=== PATIENT | male | born 1960 | race Caucasian/White ===

== ENCOUNTER 2022-12-24 05:38 | Outpatient (CLI) | payer MEDICARE ==
[~2022-12-24] VITALS: Ht 180.3 cm; Wt 83.0 kg
[2022-12-24] MEDS ORDERED: LEVE500T6 PO (10:06)
== END 2022-12-24 10:19 | disposition home or self-care (01) ==
LOC: PREOP 05:38
PROVIDERS: ATTEND Surgery
DX: Z01.818 Encounter for other preprocedural examination (principal)

== ENCOUNTER 2023-01-01 14:02 | Day surgery (SDC) | payer MEDICARE ==
[~2023-01-01] VITALS: Ht 180.3 cm; Wt 83.0 kg
[~2023-01-01 14:02] MED LIST: LEVE500T6 PO
[2023-01-01] MEDS ORDERED: LACTATED RINGERS 1,000 ML 1,000 ML IV STA (14:08)
[2023-01-01] MEDS ORDERED: HURRICAINE EXT TUBE (BENZOCAINE) XX PRN (14:15)
[2023-01-01 14:26] VITALS: BP 119/88
[2023-01-01 15:03] LABS: AMPHETAMINE SCREEN, URINE NEGATIVE (NEGATIVE); BARBITURATE SCREEN URINE NEGATIVE (NEGATIVE); CANNABINOID SCREEN, URINE NEGATIVE (NEGATIVE); COCAINE SCREEN URINE NEGATIVE (NEGATIVE); OPIATE SCREEN URINE NEGATIVE (NEGATIVE)
[2023-01-01 15:04] LABS: METHADONE STAT NEGATIVE (NEGATIVE); OXYCODONE STAT NEGATIVE (NEGATIVE); PROPOXYPHENE STAT NEGATIVE (NEGATIVE); TRICYCLIC ANTIDEPRESSANTS SCRE NEGATIVE (NEGATIVE)
--- NOTE | 2023-01-01 15:31 | Progress Note-Pre Operative ---
Pre-Operative Progress Note Date H&P Reviewed: Jan 01, 2023 Time H&P Reviewed: 15:30 History & Physical: H&P Reviewed, Patient Examed, No changes noted Pre-Operative Diagnosis: gerd, screening colonoscopy TIARA LEUNG DO Jan 01, 2023 15:30
[2023-01-01] MEDS ORDERED: MIDAZOLAM INJ 2 MG/2 ML VIAL ONE (15:53)
[2023-01-01 16:30] VITALS: BP 82/52
--- NOTE | 2023-01-01 16:32 | Progress Note-Post Operative ---
Post-Operative Progess Note Surgeon (s)/Vision Mixer (s) Surgeon TIARA LEUNG DO Vision Mixer: NA Pre-Operative Diagnosis gerd, screening colonoscopy Post-Operative Diagnosis reflux esophagitis, diverticulosis, colon polyps, rectal inflammation Procedure & Operative Findings Date of Procedure 01/01/23 Procedure Performed/Findings EGD with biopsies, colonoscopy with hot biopsy polypectomy x2, rectum cold biopsy Anesthesia Type Per PHARMACEUTICAL SALES REPRESENTATIVE Estimated Blood Loss Estimated blood loss (mL): none Specimens/Packing Specimens Removed GE junction, ascending, transverse, and rectum TIARA LEUNG DO Jan 01, 2023 16:32
--- NOTE | 2023-01-01 16:34 | Discharge Inst-Simple/Standard ---
Discharge Inst-Standard Patient Instructions/Follow Up Plan of Care/Instructions/FU: 2 weeks jean-pierre Activity as Tolerated: Yes Discharge Diet: Regular Diet (high fiber) TIARA LEUNG DO Jan 01, 2023 16:34
[2023-01-01 16:35] VITALS: BP 116/72
[2023-01-01 16:40] VITALS: BP 116/72
[2023-01-01 17:10] VITALS: BP 118/74
--- NOTE | 2023-01-01 17:13 | Anesthesia-General Post-Op ---
MAC Patient Condition Mental Status/LOC: Same as Preop Cardiovascular: Satisfactory Nausea/Vomiting: Absent Respiratory: Satisfactory Pain: Controlled Complications: Absent Post Op Complications Complications None Follow Up Care/Instructions Patient Instructions None needed. Anesthesiology Discharge Order Discharge Order Patient is doing well, no complaints, stable vital signs, no apparent adverse anesthesia problems. No complications reported per nursing. NINA SINCLAIR CRNA Jan 01, 2023 17:13
--- NOTE | 2023-01-01 21:47 | OPERATIVE REPORT ---
DATE OF SERVICE: 01/01/2023 PREOPERATIVE DIAGNOSES: Gastroesophageal reflux disease, screening colonoscopy. POSTOPERATIVE DIAGNOSES: For reflux esophagitis, diverticulosis, colon polyps, rectal inflammation. SURGEON: Tiara Seth DO ANESTHESIA: Per CREATIVE WRITING PROFESSOR. ESTIMATED BLOOD LOSS: None. PROCEDURES: EGD with biopsies, colonoscopy with hot biopsy, polypectomy x2 and cold biopsy of the rectum, INDICATIONS: The patient is a 62-year-old male with GERD and needing screening colonoscopy. He understands risks and benefits of procedure and wished to proceed. Consent was signed in chart. DESCRIPTION OF PROCEDURE: The patient was taken to endoscopy suite, placed in left lateral recumbent position. Timeout was performed. Scope was inserted in the mouth, down the esophagus, stomach, into the duodenum without difficulty. No polyps, masses or ulcerations within the duodenum. Scope was slowly retracted into the stomach where it was further insufflated. No polyps, masses or ulcerations. Biopsy of the antrum was obtained. Scope was retroflexed noting no other pathology. Scope was returned to its normal position, slowly withdrawn until distal esophagus. Slight changes of reflux esophagitis present. Biopsy of GE junction was obtained. Scope was slowly retracted back after a biopsy was obtained, noting no other pathology. Digital rectal exam was performed. No palpable polyps, masses or ulcerations. Scope was inserted in the rectum, advanced all the way to the cecum with minimal difficulty. Prep was adequate. Scope was slowly retracted back. No polyps, masses or ulcerations in the cecum. In the ascending colon, small polyp was present, which hot biopsy polypectomy was performed. Scope was then continuously retracted back. Another polyp was in transverse colon, which hot biopsy polypectomy was performed. Scope was then continuously retracted back. No polyps, masses or ulcerations within the remainder of the transverse and descending colon. In the sigmoid colon, some diverticulosis was present. No polyps, masses or ulcerations. Once in the rectum, noted some slight rectal inflammation, likely secondary to prep, obtained a cold biopsy. Scope was retroflexed, noting no other pathology. Scope was returned to its normal position, slowly withdrawn until completely removed. The patient tolerated the procedure well without complications, taken to recovery room in stable condition. RECOMMENDATIONS: The rectal inflammation is likely secondary to the prep. We will await biopsy results. The patient with diverticulosis, we would recommend high fiber diet. The patient with colon polyps, we will follow up in 2 weeks to discuss pathology results. We will recommend repeat colonoscopy in 5 years. Await biopsy results for the upper endoscopy. Continue current management. Job ID: [id number] DocumentID: [id number] Dictated Date: 01/01/2023 16:32:09 Edger Saw Operator Date: 01/01/2023 21:45:00 Dictated By: TIARA SETH DO
== END 2023-01-01 17:10 | disposition home or self-care (01) ==
LOC: ENDO 14:02
PROVIDERS: ATTEND Surgery
DX: Z12.11 Encounter for screening for malignant neoplasm of colon (principal); D12.2 Benign neoplasm of ascending colon; D12.3 Benign neoplasm of transverse colon; K21.00 Gastro-esophageal reflux disease with esophagitis, without bleeding; K57.30 Diverticulosis of large intestine without perforation or abscess without bleeding; K62.89 Other specified diseases of anus and rectum; K31.89 Other diseases of stomach and duodenum; B19.20 Unspecified viral hepatitis C without hepatic coma; F17.220 Nicotine dependence, chewing tobacco, uncomplicated; Z85.028 Personal history of other malignant neoplasm of stomach; Z85.818 Personal history of malignant neoplasm of other sites of lip, oral cavity, and pharynx
CPT/HCPCS: 80306

== ENCOUNTER 2023-02-15 19:56 | Observation (INO) | payer MEDICARE, OTHER ==
[~2023-02-15] VITALS: Ht 175 cm; Wt 97.4 kg
[~2023-02-15 19:56] MED LIST changes: +ACHD5005 PO; +AZIT500T9 PO; +GUAI120013 PO; +PROC5TAB52 PO
--- NOTE | 2023-02-15 20:15 | ED GI ---
General Chief Complaint: Abdominal/GI Problems Stated Complaint: HEP C|BLOOD IN STOOL Nursing Triage Note: PATIENT STATES ONE EPISODE OF BLOODY STOOLS. STATES CONSTIPATED, LAST BM 4 DAYS AGO. Source of Information: Patient, Family Exam Limitations: No Limitations History of Present Illness Date Seen by Provider: Feb 15, 2023 Time Seen by Provider: 19:59 Initial Comments 62-year-old male with past medical history of hepatitis C that is actively being treated as well as a seizure disorder coming in due to bright red blood per rectum. He typically is fairly constipated. His last bowel movement was roughly a week ago. He had a bowel movement today, and there was blood that was bright red mixed in with his normal stool. This only occurred 1 time today. This is never occurred in the past. Denies any prior history of GI bleed. Does not take any NSAIDs or blood thinners. Has had almost chronic abdominal pain which he attributes to a hernia. Otherwise denying any other acute complaints. Allergies and Home Medications Allergies Coded Allergies: No Known Allergies (Unverified Allergy, Unknown, 12/24/22) Patient Home Medication List Home Medication List Reviewed: Yes Azithromycin (Azithromycin) 500 Mg Tablet, 500 MG PO DAILY Prescribed by: ALLISON RIGGINS on 01/10/231717 Guaifenesin (Mucinex) 1,200 Mg Tab.er.12h, 1,200 MG PO BID Prescribed by: ALLISON RIGGINS on 01/10/231717 Hydrocodone/Acetaminophen (Hydrocodone-Acetamin 5-325 mg) 5 Mg-325 Mg Tablet, 1 TAB PO Q4H PRN for PAIN SEVERE Prescribed by: ALLISON RIGGINS on 01/10/231717 Levetiracetam (Levetiracetam) 500 Mg Tablet, 500 MG PO BID, (Reported) Entered as Reported by: KRISTIAN CLAUDIO on 12/24/22 1006 Prochlorperazine Maleate (Compazine) 5 Mg Tablet, 5 MG PO Q6H PRN for NAUSEA/VOMITING Prescribed by: ALLISON RIGGINS on 01/10/231717 Review of Systems Review of Systems Constitutional: No fever EENTM: No Symptoms Reported Respiratory: No Symptoms Reported Cardiovascular: No Symptoms Reported Gastrointestinal: See HPI Genitourinary: No Symptoms Reported Musculoskeletal: no symptoms reported Skin: no symptoms reported Psychiatric/Neurological: No Symptoms Reported Endocrine: No Symptoms Reported Hematologic/Lymphatic: No Symptoms Reported All Other Systems Reviewed Negative Unless Noted: Yes Past Awsczwp-Iancwb-Jcbizt Hx Past Medical History Surgery/Hospitalization HX: HEP C Surgeries: Yes (ANKLE,SHOULDER) Orthopedic Respiratory: No Cardiac: Yes (PACEMAKER) Hypertension Neurological: Yes Concussion, Seizure Disorder Genitourinary: No Gastrointestinal: Yes (HEPATITIS A AND C) Hepatitis Musculoskeletal: No Endocrine: No Cancer: No Psychosocial: Yes (SCHIZO-AFFECTIVE DISORDER) Blood Disorders: No Physical Exam Vital Signs Vital Signs - First Documented 02/15/23 20:03 Temp 36.7 Pulse 84 Resp 20 B/P (MAP) 125/75 (92) Pulse Ox 100 O2 Delivery Room Air Capillary Refill : Less Than 3 Seconds Height/Weight/BMI Height: '" Weight: lbs. oz. kg; 24.00 BMI Method: General Appearance: WD/WN, no apparent distress HEENT: PERRL/EOMI, normal ENT inspection, pharynx normal Neck: non-tender, full range of motion, supple, normal inspection Respiratory: chest non-tender, lungs clear, normal breath sounds, no respiratory distress, no accessory muscle use Cardiovascular: regular rate, rhythm, no edema Gastrointestinal: normal bowel sounds, soft; No distended, No guarding, No rebound; tenderness (globally) Genital/Rectal: other (Brown stool with bright red blood dried around rectum, what feels like an internal hemorrhoid as well) Extremities: normal range of motion, non-tender, normal inspection, no pedal edema, no calf tenderness, normal capillary refill Back: normal inspection, no CVA tenderness Neurologic/Psychiatric: no motor/sensory deficits, alert, normal mood/affect Skin: normal color, warm/dry Progress/Results/Core Measures Results/Orders Lab Results Laboratory Tests Test 02/15/23 20:20 Range/Units White Blood Count 7.9 4.3-11.0 10^3/uL Red Blood Count 3.58 L 4.30-5.52 10^6/uL Hemoglobin 9.1 L 13.3-17.7 g/dL Hematocrit 29 L 40-54 % Mean Corpuscular Volume 80 80-99 fL Mean Corpuscular Hemoglobin 25 25-34 pg Mean Corpuscular Hemoglobin Concent 32 32-36 g/dL Red Cell Distribution Width 16.0 H 10.0-14.5 % Platelet Count 80 L 130-400 10^3/uL Mean Platelet Volume 10.2 9.0-12.2 fL Immature Granulocyte % (Auto) 1 % Neutrophils (%) (Auto) 83 H 42-75 % Lymphocytes (%) (Auto) 7 L 12-44 % Monocytes (%) (Auto) 9 0-12 % Eosinophils (%) (Auto) 0 0-10 % Basophils (%) (Auto) 0 0-10 % Neutrophils # (Auto) 6.6 1.8-7.8 10^3/uL Lymphocytes # (Auto) 0.5 L 1.0-4.0 10^3/uL Monocytes # (Auto) 0.7 0.0-1.0 10^3/uL Eosinophils # (Auto) 0.0 0.0-0.3 10^3/uL Basophils # (Auto) 0.0 0.0-0.1 10^3/uL Immature Granulocyte # (Auto) 0.1 0.0-0.1 10^3/uL Neutrophils % (Manual) 80 % Lymphocytes % (Manual) 1 % Monocytes % (Manual) 4 % Band Neutrophils 12 % Atypical Lymphocytes 2 % Reactive Lymphocytes 1 % Toxic Granulation 2+ Platelet Estimate DECREASED Anisocytosis MODERATE Blood Morphology Comment NORMAL Prothrombin Time 15.2 H 12.2-14.7 SEC INR Comment 1.2 0.8-1.4 Activated Partial Thromboplast Time 37 H 24-35 SEC Sodium Level 124 *L 135-145 MMOL/L Potassium Level 4.8 3.6-5.0 MMOL/L Chloride Level 95 L 98-107 MMOL/L Carbon Dioxide Level 20 L 21-32 MMOL/L Anion Gap 9 5-14 MMOL/L Blood Urea Nitrogen 31 H 7-18 MG/DL Creatinine 2.25 H 0.60-1.30 MG/DL Estimat Glomerular Filtration Rate 32 BUN/Creatinine Ratio 14 Glucose Level 114 H 70-105 MG/DL Calcium Level 8.3 L 8.5-10.1 MG/DL Corrected Calcium 9.3 8.5-10.1 MG/DL Magnesium Level 1.8 1.6-2.4 MG/DL Total Bilirubin 1.4 H 0.1-1.0 MG/DL Aspartate Amino Transf (AST/SGOT) 164 H 5-34 U/L Alanine Aminotransferase (ALT/SGPT) 94 H 0-55 U/L Alkaline Phosphatase 125 40-136 U/L C-Reactive Protein 7.29 H <0.50 MG/DL Total Protein 7.1 6.4-8.2 GM/DL Albumin 2.7 L 3.2-4.5 GM/DL Lipase 35 8-78 U/L Serum Alcohol < 10 <10 MG/DL My Orders Orders - DARNELL ASHFORD MD Alcohol (02/15/23 20:11) Cbc And Automated Diff (02/15/23 20:11) Comprehensive Metabolic Panel (02/15/23 20:11) Lipase (02/15/23 20:11) Magnesium (02/15/23 20:11) Protime With Inr (02/15/23 20:11) Partial Thromboplastin Time (02/15/23 20:11) Crp Fs (02/15/23 20:11) Ct Abdomen/Pelvis W (02/15/23 20:11) Ed Iv/Invasive Line Start (02/15/23 20:11) Lorazepam Injection (Lorazepam Injection (02/15/23 20:22) Pantoprazole Injection (Pantoprazole Inj (02/15/23 20:30) Iohexol Injection (Omnipaque 350 Mg/Ml 1 (02/15/23 20:30) Received Contrast (Hold Metformin- Contr (02/15/23 20:30) Ns (Ivpb) 100 Ml (Sodium Chloride 0.9% 1 (02/15/23 20:30) Manual Differential (02/15/23 20:20) Ekg Tracing (02/15/23 20:55) Ns Iv 1000 Ml (Ns Iv 1000 Ml) (02/15/23 20:59) Ns Iv 1000 Ml (Ns Iv 1000 Ml) (02/15/23 21:01) Ed Admission (Communication) (02/15/23 21:18) Ceftriaxone 1gm/50ml (1xdose) (02/15/23 21:30) Medications Given in ED Current Medications Medications Dose Ordered Sig/Hiwot Route Start Time Stop Time Status Last Admin Dose Admin Iohexol 100 ml ONCE ONCE IV 02/15/23 20:30 02/15/23 20:31 DC 02/15/23 20:37 80 ML Pantoprazole 40 mg ONCE ONCE IV 02/15/23 20:30 02/15/23 20:31 DC 02/15/23 20:27 40 MG Sodium Chloride 100 ml ONCE ONCE IV 02/15/23 20:30 02/15/23 20:31 DC 02/15/23 20:37 100 ML Vital Signs/I&O 02/15/23 20:03 Temp 36.7 Pulse 84 Resp 20 B/P (MAP) 125/75 (92) Pulse Ox 100 O2 Delivery Room Air Blood Pressure Mean: 92 Progress Progress Note : Progress Note 62-year-old male with above history coming in due to bright blood per rectum. ABCs were intact and vitals were stable on presentation. Physical exam with the primary blood dried around his anus, brown stool, and what feels like an internal hemorrhoid. He also has a good story for constipation. I reviewed the chart, and he had an upper and lower GI scope done within the past month. He does not have varices, he did have a polypectomy done on colonoscopy as well. He does not take any blood thinners, does take meloxicam, and has never had a GI bleed before. I personally placed an ultrasound-guided IV, and basic labs were obtained. They were significant for hemoglobin of 9.1, 3 points lower than last month, creatinine 2.2, significantly increased from last month, sodium 124, significantly lower from last month as well, and elevated CRP which is more nonspecific. CT abdomen pelvis ordered and interpreted by me showing what appears to be splenic infarcts and a small pleural effusion most notably. I contacted Dr. Seth, the surgeon on-call who also did his recent scope, and he believes given the patient's constipation is a very likely hemorrhoid did form. He will follow the patient along in consultation. I then contacted Dr. Galeano who admit the patient to the ICU for further evaluation and management under observation status. In discussion with her, the patient does have increasing bands in his white blood cell count, and given the GI bleed with a history of hepatitis C, we will go ahead and treat him with ceftriaxone as well. Initial ECG Impression Date: Feb 15, 2023 Initial ECG Impression Time: 20:59 Initial ECG Rate: 84 Initial ECG Rhythm: Normal Sinus Comment Narrow QRS, normal axis, no significant ST changes or T wave abnormalities Diagnostic Imaging Diagonstic Imaging: CT (abd/pelvis) Departure Impression Primary Impression: GI bleed Qualified Codes: K62.5 - Hemorrhage of anus and rectum Additional Impressions: NIURKA (acute kidney injury) Hyponatremia Splenic infarct Disposition: 30 STILL A PATIENT Condition: Stable Admissions Decision to Admit Reason: Admit from ER (General) Decision to Admit/Date: Feb 15, 2023 Time/Decision to Admit Time: 21:10 Departure-Patient Inst. Referrals: SEUN MATTHEWS (PCP/Family) Primary Care Physician DARNELL ASHFORD MD Feb 15, 2023 20:15
[2023-02-15 20:29] LABS: BASOPHILS % (AUTO) 0 % (0-10); EOSINOPHILS % (AUTO) 0 % (0-10); HEMATOCRIT 29 % (40-54); HEMOGLOBIN 9.1 g/dL (13.3-17.7); LYMPHOCYTES # (AUTO) 0.5 10^3/uL (1.0-4.0); LYMPHOCYTES % (AUTO) 7 % (12-44); MEAN CORPUSCULAR HEMOGLOBIN 25 pg (25-34); MEAN CORPUSCULAR HGB CONC 32 g/dL (32-36); MEAN CORPUSCULAR VOLUME 80 fL (80-99); MEAN PLATELET VOLUME 10.2 fL (9.0-12.2); MONOCYTES # (AUTO) 0.7 10^3/uL (0.0-1.0); MONOCYTES % (AUTO) 9 % (0-12); NEUTROPHILS # (AUTO) 6.6 10^3/uL (1.8-7.8); NEUTROPHILS % (AUTO) 83 % (42-75); PLATELET COUNT 80 10^3/uL (130-400); WHITE BLOOD COUNT 7.9 10^3/uL (4.3-11.0)
[2023-02-15] MEDS ORDERED: NS 100 ML (IVPB) BAG IV ONE (20:30)
[2023-02-15] MEDS ORDERED: IOHEXOL 350 MG/ML 100 ML (OMNIPAQUE 350) VIAL IV ONE (20:30)
[2023-02-15] MEDS ORDERED: PANTOPRAZOLE INJECTION 40 MG VIAL IV ONE (20:30)
[2023-02-15] MEDS ORDERED: HOLD METFORMIN - RECEIVED CONTRAST 20 ML VIAL IV SCH (20:30)
[2023-02-15 20:49] LABS: ATYPICAL LYMPHOCYTES 2 %; BAND NEUTROPHILS 12 %; LYMPHOCYTES % (MANUAL) 1 %; MONOCYTES % (MANUAL) 4 %; NEUTROPHILS % (MANUAL) 80 %; REACTIVE LYMPHOCYTES 1 %
[2023-02-15 20:50] LABS: ANISOCYTOSIS MODERATE; PLATELET ESTIMATE DECREASED; RBC MORPH NORMAL; TOXIC GRANULATION/VACUOLAZATIO 2+
[2023-02-15 20:54] LABS: ALKALINE PHOSPHATASE 125 U/L (40-136); BILIRUBIN,TOTAL 1.4 MG/DL (0.1-1.0); BUN/CREATININE RATIO 14; CALCIUM 8.3 MG/DL (8.5-10.1); CARBON DIOXIDE 20 MMOL/L (21-32); CHLORIDE 95 MMOL/L (98-107); CREATININE SERUM 2.25 MG/DL (0.60-1.30); GFR ESTIMATED 32; GLUCOSE 114 MG/DL (70-105); MAGNESIUM 1.8 MG/DL (1.6-2.4); POTASSIUM 4.8 MMOL/L (3.6-5.0); SODIUM 124 MMOL/L (135-145)
[2023-02-15 20:55] LABS: ALANINE AMINOTRANSFERASE 94 U/L (0-55); ALBUMIN 2.7 GM/DL (3.2-4.5); LIPASE 35 U/L (8-78); TOTAL PROTEIN 7.1 GM/DL (6.4-8.2)
[2023-02-15 20:57] LABS: INR 1.2 (0.8-1.4); PROTHROMBIN TIME PATIENT 15.2 SEC (12.2-14.7)
[2023-02-15] MEDS ORDERED: NS IV 1000 ML 1,000 ML IV STA (20:59)
[2023-02-15] MEDS ORDERED: NS IV 1000 ML 1,000 ML ONE (21:01)
--- NOTE | 2023-02-15 21:15 | Diagnostic Imaging Report ---
PROCEDURE: CT abdomen and pelvis with contrast. TECHNIQUE: Multiple contiguous axial images were obtained through the abdomen and pelvis after administration of intravenous contrast. Auto Exposure Controls were utilized during the CT exam to meet ALARA standards for radiation dose reduction. All CT scans use one or more of the following dose optimizing techniques: automated exposure control, MA and/or KvP adjustment based on patient size and exam type or iterative reconstruction. INDICATION: Periumbilical pain. Hematochezia. COMPARISON: None. FINDINGS: Small bilateral pleural effusions, greater on the right. Enlarged spleen measuring up to 2.1 cm. There are also irregular hypoenhancing regions throughout the spleen. Inflammatory changes about a decompressed gallbladder. The pancreas, adrenals, kidneys, collecting systems and bladder are negative. Small amount of free fluid dependently in the pelvis. Advanced colonic diverticulosis without evidence of active diverticulitis. No free intraperitoneal air. No evidence of bowel obstruction. The appendix is not identified and may be surgically absent. No lymphadenopathy. No acute osseous findings. IMPRESSION: 1. Although the gallbladder is contracted, there are marked inflammatory changes about the gallbladder which could be due to cholecystitis. This could be further investigated with ultrasound. 2. Markedly enlarged spleen. Hypoattenuating regions throughout the spleen may be due to heterogeneous perfusion. Splenic infarcts or hemangiomas could have a similar appearance. 3. Advanced colonic diverticulosis without evidence of active diverticulitis. 4. Small bilateral pleural effusions, greater on the right 5. Small amount of free fluid dependently in the pelvis. Dictated by: Dictated on workstation # [id number]
[2023-02-15] MEDS ORDERED: cefTRIAXone IV/IM 1,000 MG in NS (IVPB) 50 ML 50 ML IV ONE (21:30)
[2023-02-15] MEDS ORDERED: LACTULOSE SYRUP 10GM/15ML 30ML UDC PO PRN (22:45)
[2023-02-15] MEDS ORDERED: NS IV 500 ML 500 ML IV PRN (22:45)
[2023-02-15] MEDS ORDERED: MELATONIN 3 MG TABLET PO PRN (22:45)
[2023-02-15] MEDS ORDERED: ANTACID SUSPENSION 30 ML UDC PO PRN (22:45)
[2023-02-15] MEDS ORDERED: NS IV 1000 ML 1,000 ML IV SCH (22:45)
[2023-02-15] MEDS ORDERED: diphenhydrAMINE INJ 50 MG/ML VIAL IVP PRN (22:45)
[2023-02-15] MEDS ORDERED: ONDANSETRON 4 MG ORAL DISSOLVE TABLET PO PRN (22:45)
[2023-02-15] MEDS ORDERED: diphenhydrAMINE 25 MG TABLET PO PRN (22:45)
[2023-02-15] MEDS ORDERED: BISACODYL 10 MG SUPPOSITORY PR PRN (22:45)
[2023-02-15] MEDS ORDERED: ACETAMINOPHEN 325 MG TABLET PO PRN (22:45)
[2023-02-15] MEDS ORDERED: ONDANSETRON INJECTION 4 MG/2 ML (SDV) IV PRN (22:45)
[2023-02-15] MEDS ORDERED: HYDROmorphone INJECTION 2 MG/ML VIAL ONE (23:01)
[2023-02-15] MEDS: HYDROmorphone INJECTION 2 MG/ML VIAL IV PRN (23:04)
[2023-02-15] MEDS ORDERED: MELO10CA3 PO (23:41)
[2023-02-15] MEDS ORDERED: OLN5T PO (23:49)
[2023-02-15] MEDS ORDERED: FAMO-356 PO (23:49)
[2023-02-15] MEDS ORDERED: ONDA4TAB11 SL (23:49)
[2023-02-15] MEDS ORDERED: ASPI-999 PO (23:49)
[2023-02-15] MEDS ORDERED: SOFO1TAB3 PO (23:49)
[2023-02-15] MEDS ORDERED: LEGATRIN PM PO (23:49)
--- NOTE | 2023-02-16 00:12 | Tele-ICU Progress Note ---
Progress Note Tele ICU 62 yo man admitted through ED with hx bright red blood per rectum after BM - last being 1 week prior. ED exam revealed brown stool and possibility of internal hemorrhoid. Pt was reviewed by the ED with surgery who performed colonoscopy and EGD in pervious month- he will follow pt in hospital. Agreed likely hemorrhoid. Per ED review- lab abnormalities in CBC, LFTs, BMP, PMHx Hepatitis C, seizures- meds Azithromycin, Mucinex, [place] 5/325, Levetiracetam 500 BID, prochlorperazine 5 mg prn Pertinent labs in ED: CBC wbcs 7900 P 80 [address] [place] 4 atypical lymphs 2 reactive lymphs 1 Hgb 9.1 Plt 80,000 CRP 7.29 INR 1.2 Na 124 K 4.8 Cl 95 Bicarb 20 Mg 1.8 BUN 31 Cr 2.25 Total Prot 7.1 Alb 2.7 Total Bili 1.4 AST [address] Abd/Pelvis IMPRESSION: 1. Although the gallbladder is contracted, there are marked inflammatory changes about the gallbladder which could be due to cholecystitis. This could be further investigated withultrasound. 2. Markedly enlarged spleen. Hypoattenuating regions throughout the spleen may be due to heterogeneous perfusion. Splenic infarcts or hemangiomas could have a similar appearance. 3. Advanced colonic diverticulosis without evidence of activediverticulitis. 4. Small bilateral pleural effusions, greater on the right 5. Small amount of free fluid dependently in the pelvis. Per video sleeping HR 84 NSR, 124/71 sats 95% on RA A/P: 1) Rectal bleed 2) Anemia, thrombocytopenia (with splenomegaly) , elevated INR 3) NIURKA 4) Hepatic dysfunction - hepatitis C and inflammatory changes at GB- poss septic focus Orders were already written for meds, AM labs, already started Ceftriaxone-- will place orders for Blood c/s, UA- reflex culture , Lactic acid, US Abdomen in AM, hepatitis C RNA viral load, D/ W bedside nursing Focused Exam Height, Weight, BMI Height: '" Weight: lbs. oz. kg; 26.93 BMI Method: GAGE FOSTER DO Feb 16, 2023 00:12
[2023-02-16] MEDS: HYDROmorphone INJECTION 2 MG/ML VIAL IV PRN ×4 (02:32→20:54)
[2023-02-16 02:51] LABS: CLARITY,URINE SL CLOUDY; COLOR,URINE ORANGE; GLUCOSE, URINE (UA) NEGATIVE (NEGATIVE); PH,URINE 5.5 (5-9); PROTEIN,URINE 2+ (NEGATIVE)
[2023-02-16 02:52] LABS: BACTERIA,URINE FEW /HPF; BILIRUBIN,URINE 1+ (NEGATIVE); KETONES,URINE NEGATIVE (NEGATIVE); LEUKOCYTE ESTERASE ,URINE TRACE (NEGATIVE); NITRITE,URINE NEGATIVE (NEGATIVE); RBC,URINE 50-100 /HPF
[2023-02-16 02:53] LABS: GRANULAR CASTS,URINE RARE /LPF; WHITE BLOOD CELL CASTS, URINE RARE /LPF
[2023-02-16 04:56] LABS: HEMATOCRIT 28 % (40-54)
[2023-02-16 04:58] LABS: BASOPHILS % (AUTO) 0 % (0-10); EOSINOPHILS % (AUTO) 0 % (0-10); HEMOGLOBIN 8.9 g/dL (13.3-17.7); LYMPHOCYTES # (AUTO) 0.5 10^3/uL (1.0-4.0); LYMPHOCYTES % (AUTO) 7 % (12-44); MEAN CORPUSCULAR HEMOGLOBIN 26 pg (25-34); MEAN CORPUSCULAR HGB CONC 32 g/dL (32-36); MEAN CORPUSCULAR VOLUME 81 fL (80-99); MEAN PLATELET VOLUME 10.6 fL (9.0-12.2); MONOCYTES # (AUTO) 0.7 10^3/uL (0.0-1.0); MONOCYTES % (AUTO) 9 % (0-12); NEUTROPHILS # (AUTO) 5.8 10^3/uL (1.8-7.8); NEUTROPHILS % (AUTO) 82 % (42-75); PLATELET COUNT 65 10^3/uL (130-400)
[2023-02-16 05:17] LABS: ALBUMIN 2.5 GM/DL (3.2-4.5); BILIRUBIN,TOTAL 1.5 MG/DL (0.1-1.0); CALCIUM 8.1 MG/DL (8.5-10.1); CREATININE SERUM 2.22 MG/DL (0.60-1.30); MAGNESIUM 1.7 MG/DL (1.6-2.4); PHOSPHORUS 4.7 MG/DL (2.3-4.7); POTASSIUM 4.8 MMOL/L (3.6-5.0); TOTAL PROTEIN 6.6 GM/DL (6.4-8.2)
[2023-02-16] MEDS: MAGNESIUM 1 GM/100 ML IVPB 100 ML IV SCH ×3 (05:39→07:35)
[2023-02-16] MEDS ORDERED: MAGNESIUM 1 GM/100 ML IVPB 100 ML IV SCH (06:00)
[2023-02-16] MEDS ORDERED: POTASSIUM CL 10MEQ/50ML IVPB 50 ML IV SCH (06:00)
[2023-02-16] MEDS ORDERED: POTASSIUM CHLORIDE 20 MEQ TABLET PO SCH (06:00)
--- NOTE | 2023-02-16 07:20 | Consultation - Surgery ---
AMAYA 02/16/23 0720: History of Present Illness History of Present Illness Patient Consulted On(suleman/time) 02/16/23 07:11 Date Seen by Provider: Feb 16, 2023 Time Seen by Provider: 07:00 History of Present Illness 62 y/o male presented to [facility] for abdominal pain and bright red blood in his rectum. He said his pain has been going on for years but patient is not able to describe when the intensity started increasing and brought him to the ER. reported a hernia to the ED physician. He is a&o x 2 and fades in and out of sleep so it is difficult to obtain information. Upon arrival to the ED last night he had a BM with bright red blood per rectum and potential internal hemorrhoids per rectal exam completed by ED physician. Current pain in diffusely around the abdomen but more intense in the left and right lower quadrants and around the umbilicus. Rates in a 01/27. He reports no episodes of N/V. He had a EGD w/ biopsy and a colonoscopy w/ hot bx polypectomy x2 and cold bx of the rectum on 01/[address] Leung. Results showed low grade reflux esophagitis and a tubular adenoma in the ascending colon. CT obtained in ED showed Allergies and Home Medications Allergies Coded Allergies: No Known Allergies (Unverified Allergy, Unknown, 12/24/22) Patient Home Medication List Home Medication List Reviewed: Yes Aspirin (Aspirin) 81 Mg Tab.chew, 81 MG PO DAILY, (Reported) Entered as Reported by: KOFI COATS on 02/15/232348 Last Action: New Order Azithromycin (Azithromycin) 500 Mg Tablet, 500 MG PO DAILY Prescribed by: ALLISON RIGGINS on 01/10/231717 Famotidine (Acid Heat Sealing Machine Operator (FAMOTIDINE)) 20 Mg Tablet, 20 MG PO BID, (Reported) Entered as Reported by: KOFI COATS on 02/15/232348 Last Action: New Order Guaifenesin (Mucinex) 1,200 Mg Tab.er.12h, 1,200 MG PO BID Prescribed by: ALLISON RIGGINS on 01/10/231717 Hydrocodone/Acetaminophen (Hydrocodone-Acetamin 5-325 mg) 5 Mg-325 Mg Tablet, 1 TAB PO Q4H PRN for PAIN SEVERE Prescribed by: ALLISON RIGGINS on 01/10/231717 Levetiracetam (Levetiracetam) 500 Mg Tablet, 500 MG PO BID, (Reported) Entered as Reported by: KRISTIAN CLAUDIO on 12/24/22 1006 Last Action: Last Taken Edited Meloxicam, Submicronized (Meloxicam) 10 Mg Capsule, 15 MG PO DAILY, (Reported) Entered as Reported by: KOFI COATS on 02/15/232340 Last Action: New Order Olanzapine (Olanzapine) 5 Mg Tablet, 5 MG PO DAILY, (Reported) Entered as Reported by: KOFI COATS on 02/15/232348 Last Action: New Order Ondansetron (Ondansetron Odt) 4 Mg Tab.rapdis, 4 MG SL Q8H PRN for NAUSEA-1ST LINE, (Reported) Entered as Reported by: KOFI COATS on 02/15/232348 Last Action: New Order Prochlorperazine Maleate (Compazine) 5 Mg Tablet, 5 MG PO Q6H PRN for NAUSEA/VOMITING Prescribed by: ALLISON RIGGINS on 01/10/231717 Sofosbuvir/Velpatasvir (Sofosbuvir-Velpatasvir 400-100) 400 Mg-100 Mg Tablet, 1 EACH PO DAILY, (Reported) Entered as Reported by: KOFI COATS on 02/15/232348 Last Action: New Order [Legatrin Pm] , PO, (Reported) Entered as Reported by: KOFI COATS on 02/15/232348 Last Action: New Order Past Odnaxnr-Laauat-Ownxuc Hx Patient Social History Alcohol Use?: No Surgeries History of Surgeries: Yes (ANKLE,SHOULDER) Surgeries: Orthopedic Respiratory History of Respiratory Disorde: No Cardiovascular History of Cardiac Disorders: Yes (PACEMAKER) Cardiac Disorders: Hypertension Neurological History of Neurological Disord: Yes Neurological Disorders: Concussion, Seizure Disorder Genitourinary History of Genitourinary Disor: No Gastrointestinal History of Gastrointestinal Di: Yes (HEPATITIS A AND C) Gastrointestinal Disorders: Hepatitis Musculoskeletal History of Musculoskeletal Dis: No Endocrine History of Endocrine Disorders: No Cancer History of Cancer: No Psychosocial History of Psychiatric Problem: Yes (SCHIZO-AFFECTIVE DISORDER) Blood Transfusions History of Blood Disorders: No Review of Systems-General Constitutional: No chills, No fever EENTM: hearing loss; No ear discharge Respiratory: No cough, No hemoptysis, No phlegm Gastrointestinal: abdominal pain, constipation, heartburn; No nausea, No vomiting Genitourinary: No decreased output, No hematuria Musculoskeletal: back pain, joint pain Skin: No change in color, No change in hair/nails Psychiatric/Neurological: Denies Numbness; Seizure (hx of seizures) Physical Exam-General Problems Physical Exam Vital Signs Vital Signs - First Documented 02/15/23 02/15/23 20:03 23:57 Temp 36.7 Pulse 84 Resp 20 B/P (MAP) 125/75 (92) Pulse Ox 100 O2 Delivery Room Air FiO2 21 Capillary Refill : Less Than 3 Seconds General Appearance: WD/WN, moderate distress HEENT: PERRL/EOMI, TMs normal Neck: non-tender, supple Respiratory: chest non-tender, normal breath sounds, no respiratory distress Cardiovascular: no edema, no murmur Gastrointestinal: abnormal bowel sounds, guarding, tenderness Extremities: non-tender, no pedal edema Neurologic/Psychiatric: alert, normal mood/affect Skin: normal color, warm/dry Lymphatic: no adenopathy Data Review Labs Laboratory Tests 02/15/23 20:20: White Blood Count 7.9, Red Blood Count 3.58L, Hemoglobin 9.1L, Hematocrit 29L, Mean Corpuscular Volume 80, Mean Corpuscular Hemoglobin 25, Mean Corpuscular Hemoglobin Concent 32, Red Cell Distribution Width 16.0H, Platelet Count 80L, Mean Platelet Volume 10.2, Immature Granulocyte % (Auto) 1, Neutrophils (%) (Auto) 83H, Lymphocytes (%) (Auto) 7L, Monocytes (%) (Auto) 9, Eosinophils (%) (Auto) 0, Basophils (%) (Auto) 0, Neutrophils # (Auto) 6.6, Lymphocytes # (Auto) 0.5L, Monocytes # (Auto) 0.7, Eosinophils # (Auto) 0.0, Basophils # (Auto) 0.0, Immature Granulocyte # (Auto) 0.1, Neutrophils % (Manual) 80, Lymphocytes % (Manual) 1, Monocytes % (Manual) 4, Band Neutrophils 12, Atypical Lymphocytes 2, Reactive Lymphocytes 1, Toxic Granulation 2+, Platelet Estimate DECREASED, Anisocytosis MODERATE, Blood Morphology Comment NORMAL, Prothrombin Time 15.2H, INR Comment 1.2, Activated Partial Thromboplast Time 37H, Sodium Level 124*L, Potassium Level 4.8, Chloride Level 95L, Carbon Dioxide Level 20L, Anion Gap 9, Blood Urea Nitrogen 31H, Creatinine 2.25H, Estimat Glomerular Filtration Rate 32, BUN/Creatinine Ratio 14, Glucose Level 114H, Calcium Level 8.3L, Corrected Calcium 9.3, Magnesium Level 1.8, Total Bilirubin 1.4H, Aspartate Amino Transf (AST/SGOT) 164H, Alanine Aminotransferase (ALT/SGPT) 94H, Alkaline Phosphatase 125, C-Reactive Protein 7.29H, Total Protein 7.1, Albumin 2.7L, Lipase 35, Serum Alcohol < 10 02/16/23 00:42: Lactic Acid Level 0.54 02/16/23 02:14: Urine Color ORANGE, Urine Clarity SL CLOUDY, Urine pH 5.5, Urine Specific [place] 1.015L, Urine Protein 2+H, Urine Glucose (UA) NEGATIVE, Urine Ketones NEGATIVE, Urine Nitrite NEGATIVE, Urine Bilirubin 1+H, Urine Urobilinogen 4.0, Urine Leukocyte Esterase TRACEH, Urine RBC (Auto) 3+H, Urine RBC 50-100H, Urine WBC 5-10H, Urine Crystals NONE, Urine Bacteria FEWH, Urine Casts PRESENT, Urine Granular Casts RARE, Urine White Blood Cell Casts RAREH, Urine Mucus NEGATIVE, Urine Culture Indicated YES 02/16/23 04:26: White Blood Count 7.0, Red Blood Count 3.49L, Hemoglobin 8.9L, Hematocrit 28L, Mean Corpuscular Volume 81, Mean Corpuscular Hemoglobin 26, Mean Corpuscular Hemoglobin Concent 32, Red Cell Distribution Width 16.1H, Platelet Count 65L, Mean Platelet Volume 10.6, Immature Granulocyte % (Auto) 1, Neutrophils (%) (Auto) 82H, Lymphocytes (%) (Auto) 7L, Monocytes (%) (Auto) 9, Eosinophils (%) (Auto) 0, Basophils (%) (Auto) 0, Neutrophils # (Auto) 5.8, Lymphocytes # (Auto) 0.5L, Monocytes # (Auto) 0.7, Eosinophils # (Auto) 0.0, Basophils # (Auto) 0.0, Immature Granulocyte # (Auto) 0.0, Sodium Level 127L, Potassium Level 4.8, Chloride Level 102, Carbon Dioxide Level 18L, Anion Gap 7, Blood Urea Nitrogen 29H, Creatinine 2.22H, Estimat Glomerular Filtration Rate 33, BUN/Creatinine Ratio 13, Glucose Level 96, Calcium Level 8.1L, Corrected Calcium 9.3, Magnesium Level 1.7, Total Bilirubin 1.5H, Aspartate Amino Transf (AST/SGOT) 188H, Alanine Aminotransferase (ALT/SGPT) 110H, Alkaline Phosphatase 96, Total Protein 6.6, Albumin 2.5L, Percent Immature Platelet Fraction 4.0, Phosphorus Level 4.7 Assessment/Plan Assessment/Plan Assessment/Plan Assessment: hematochezia Enlarged spleen hx of seizures and hepc infection Plan: F/u on US Anoscopy for possible hemmorrhoids Continue monitoring pain Clinical Quality Measures DVT/VTE Risk/Contraindication: Contraindications-Pharm: Other *list below* Other: TIARA JAEGER DO 02/16/23 1851: History of Present Illness History of Present Illness History of Present Illness Patient is a 62 year old male who had some bright red blood per rectum. Had rectal exam which was felt to have hemorrhoid. He has been having constipation for about the last month. Had constipation and with last bm had the bleeding. Reports left lower quadrant abdominal pain that was 10/10. No n/v No right upper quadrant abdominal pain. Has chronic back pain. Ct scan:Although the gallbladder is contracted, there are marked inflammatory changes about the gallbladder which could be due to cholecystitis. This could be further investigated with ultrasound. 2. Markedly enlarged spleen. Hypoattenuating regions throughout the spleen may be due to heterogeneous perfusion. Splenic infarcts or hemangiomas could have a similar appearance. 3. Advanced colonic diverticulosis without evidence of active diverticulitis. 4. Small bilateral pleural effusions, greater on the right 5. Small amount of free fluid dependently in the pelvis. Allergies and Home Medications Allergies Coded Allergies: No Known Allergies (Unverified Allergy, Unknown, 12/24/22) Patient Home Medication List Home Medication List Reviewed: Yes Aspirin (Aspirin) 81 Mg Tab.chew, 81 MG PO DAILY, (Reported) Entered as Reported by: KOFI COATS on 02/15/23 6720 Last Action: New Order Azithromycin (Azithromycin) 500 Mg Tablet, 500 MG PO DAILY Prescribed by: ALLISON RIGGINS on 9/23/23 1718 Famotidine (Acid Heat Sealing Machine Operator (FAMOTIDINE)) 20 Mg Tablet, 20 MG PO BID, (Reported) Entered as Reported by: KOFI COATS on 02/15/232348 Last Action: New Order Guaifenesin (Mucinex) 1,200 Mg Tab.er.12h, 1,200 MG PO BID Prescribed by: ALLISON RIGGINS on 01/10/231717 Hydrocodone/Acetaminophen (Hydrocodone-Acetamin 5-325 mg) 5 Mg-325 Mg Tablet, 1 TAB PO Q4H PRN for PAIN SEVERE Prescribed by: ALLIOSN RIGGINS on 01/10/231717 Levetiracetam (Levetiracetam) 500 Mg Tablet, 500 MG PO BID, (Reported) Entered as Reported by: KRISTIAN CLAUDIO on 12/24/22 100 Last Action: Last Taken Edited Meloxicam, Submicronized (Meloxicam) 10 Mg Capsule, 15 MG PO DAILY, (Reported) Entered as Reported by: KOFI COATS on 02/15/232340 Last Action: New Order Olanzapine (Olanzapine) 5 Mg Tablet, 5 MG PO DAILY, (Reported) Entered as Reported by: KOFI COATS on 02/15/232348 Last Action: New Order Ondansetron (Ondansetron Odt) 4 Mg Tab.rapdis, 4 MG SL Q8H PRN for NAUSEA-1ST LINE, (Reported) Entered as Reported by: KOFI COATS on 02/15/232348 Last Action: New Order Prochlorperazine Maleate (Compazine) 5 Mg Tablet, 5 MG PO Q6H PRN for NAUSEA/VOMITING Prescribed by: ALLISON RIGGINS on 01/10/231717 Sofosbuvir/Velpatasvir (Sofosbuvir-Velpatasvir 400-100) 400 Mg-100 Mg Tablet, 1 EACH PO DAILY, (Reported) Entered as Reported by: KOFI COATS on 02/15/232348 Last Action: New Order [Legatrin Pm] , PO, (Reported) Entered as Reported by: KOFI COATS on 02/15/232348 Last Action: New Order Past Mrzflsz-Keqrnk-Orutzm Hx Reviewed Nursing Assessment Reviewed/Agree w Nursing PMH: Yes Family Medical History Significant Family History: No Pertinent Family Hx Review of Systems-General Constitutional: No chills, No fever EENTM: No blurred vision, No double vision Respiratory: No cough, No dyspnea on exertion Cardiovascular: No chest pain, No palpitations Gastrointestinal: abdominal pain (LLQ), constipation; No nausea, No vomiting Genitourinary: No decreased output, No discharge Musculoskeletal: back pain, joint pain Skin: No change in color, No change in hair/nails Psychiatric/Neurological: Denies Anxiety, Denies Depressed, Denies Emotional Problems, Denies Numbness; Seizure (hx of seizures) All Other Systems Reviewed Negative Unless Noted: Yes (Negative excepted noted.) Physical Exam-General Problems Physical Exam General Appearance: WD/WN, no apparent distress; No moderate distress HEENT: PERRL/EOMI, normal ENT inspection Neck: non-tender, supple Respiratory: chest non-tender, no respiratory distress, no accessory muscle use Cardiovascular: regular rate, rhythm, no JVD Gastrointestinal: soft; No guarding; tenderness (llq) Genital/Rectal: other (deferred at this time) Back: No no CVA tenderness, No no vertebral tenderness Extremities: non-tender, normal inspection Neurologic/Psychiatric: alert, normal mood/affect, oriented x 3 Skin: normal color, warm/dry Lymphatic: no adenopathy Assessment/Plan Assessment/Plan Assessment/Plan hematochezia Enlarged spleen c infarcts constipation hx of seizures and hepc infection F/u on US he is not having any ruq abdominal pain at this time. deferred rectal exam at this time, will wait and try to do at another time follow hgb prbc if needed clear liquids Supervisory-Addendum Brief Verification & Attestation Participated in pt care: history, MDM, physical Personally performed: exam, history, MDM, supervision of care Care discussed with: Medical Student Procedures: n/a Results interpretation: Verified all documentation Verification and Attestation of Medical Student E/M Service A medical student performed and documented this service in my presence. I reviewed and verified all information documented by the medical student and made modifications to such information, when appropriate. I personally performed the physical exam and medical decision making. Tiara Leung, Feb 16, 2023,19:08 AMAYA Feb 16, 2023 07:20 TIARA LEUNG DO Feb 16, 2023 18:51
[2023-02-16] MEDS ORDERED: FLU QUADRIvalent (6 months+) 60 mcg/0.5 ml 2023-2024 (FLUARIX) IM ONE (07:30)
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
[2023-02-16] MEDS: PANTOPRAZOLE INJECTION 40 MG VIAL IV SCH (09:16)
[2023-02-16] MEDS: DOCUSATE SODIUM 100 MG CAPSULE PO SCH ×2 (09:17→20:04)
[2023-02-16] MEDS: LevETIRAcetam INJECTION 500 MG in NS (IVPB) 100 ML 100 ML IV SCH ×2 (09:17→20:04)
[2023-02-16] MEDS: NS IV 1000 ML 1,000 ML IV SCH ×3 (09:24→22:08)
--- NOTE | 2023-02-16 09:36 | Tele-ICU Progress Note ---
Subjective Date Seen by a Provider: Feb 16, 2023 Time Seen by a Provider: 09:35 Subjective/Events-last exam (Tele-ICU Physician , Progress Note ) Service provided via interactive audio and video telecommunications E-CARE system to a patient admitted to ICU bed in [facility]. Patient is seen today due to persistent need of ICU care Available chart/ vitals / labs / Images reviewed Video assessment done using teleICU camera, rest of exam as per RN Discussed with RN Events overnight : Afebrile hemodynamically stable Respiratory - I/O = Drips: Pressors- no Hospital course: A/P RBRPR - LGIB - colonoscopy and EGD in pervious month- oulip and GERD esophagitis -likely hemorrhoid -Ceftriaxone started sxc comsulted NIURKA - CT - no hydro - NS 70 , cont to hydrate , increase the rate Hyponatremia - last month NA 1341 - now 127 - cont hydration Hep C infection -? tx ed Thrombocytopenia - worse ( was 120 last month ) - worsening with delition vs infection - monitor CT 02/15- -marked inflammatory changes about the gallbladder which could be due to cholecystitis. - US pending Sx dx - resume keppra Lines : , (Central Line Necessity Reviewed) Shah: void OG: Nutrition: Analgesia: Anxiety/ delirium VTE Prophylaxis: scd Stress Ulcer Prophylaxis: Plans in collaboration with bedside consultants and IM MDs. Discussed with RN to reach out if any questions or concerns Case and care daily discussed on multidisciplinary rounds ( RN, PharmD, Nutri tionist , Respiratory Therapy, used car make ready worker ) A total of 20 minutes of critical care time was devoted to this patient today, required to treat and/or prevent further deterioration of critical care condition ( as above ) . I am remotely monitoring this patient from another state. I am unable to do the bedside exam, and history/physical and pertinent information is taken from other notes in the computer and bedside staff. Sepsis Event Evaluation Height, Weight, BMI Height: '" Weight: lbs. oz. kg; 26.61 BMI Method: Focused Exam Lactate Level 02/16/23 00:42: Lactic Acid Level 0.54 Exam Exam Patient acknowledged, consented, and participated in this virtual visit which was conducted using real time audio/video Vital Signs Date Time Temp Pulse Resp B/P (MAP) Pulse Ox O2 Delivery O2 Flow Rate FiO2 02/16/23 09:00 76 21 131/88 (102) 90 Room Air 02/16/23 08:13 37.1 02/16/23 08:00 74 24 118/71 (87) 90 Room Air 02/16/23 07:00 70 02/16/23 07:00 71 21 112/67 (82) 95 Room Air 02/16/23 06:30 70 24 114/77 (90) 88 Room Air 02/16/23 06:00 72 20 92/53 (66) 93 Room Air 02/16/23 05:00 73 20 112/72 (85) 95 Room Air 02/16/23 04:08 36.1 02/16/23 04:00 75 21 106/67 (80) 95 Room Air 02/16/23 03:35 96 Room Air 02/16/23 03:00 76 23 98/55 (69) 94 Room Air 02/16/23 02:00 76 24 109/66 (80) 96 Room Air 02/16/23 01:00 75 02/16/23 01:00 75 22 104/59 (74) 93 Room Air 02/16/23 00:30 79 25 109/68 (82) 94 Room Air 02/16/23 00:00 79 21 98/55 (72) 96 Room Air 02/15/23 23:57 80 95 21 02/15/23 23:45 80 23 97/57 (69) 94 Room Air 02/15/23 23:30 80 23 117/67 (85) 95 Room Air 02/15/23 23:15 82 25 124/72 (86) 89 Room Air 02/15/23 23:00 80 16 123/70 (87) 95 02/15/23 22:45 80 22 120/81 (94) 97 02/15/23 22:45 100 Room Air 02/15/23 22:41 82 02/15/23 22:39 37.2 81 23 123/79 (94) 99 Room Air 02/15/23 22:02 87 20 128/80 100 Room Air 02/15/23 20:03 36.7 84 20 125/75 (92) 100 Room Air I & O 02/16/23 07:00 Intake Total 1900 ml Output Total 700 ml Balance 1200 ml Height & Weight Height: '" Weight: lbs. oz. kg; 26.61 BMI Method: General Appearance: Other Capillary Refill: Less Than 3 Seconds Gastrointestinal: abnormal bowel sounds, guarding, tenderness Results Lab Laboratory Tests 02/15/23 20:20 02/16/23 04:26 Assessment/Plan Assessment/Plan 1 PILAR ERNANDEZ MD Feb 16, 2023 09:36
[2023-02-16] MEDS: oxyCODONE IMMEDIATE RELEASE 5 MG TABLET PO PRN ×2 (11:14→20:04)
[2023-02-16 14:22] LABS: AMPHETAMINE SCREEN, URINE NEGATIVE (NEGATIVE); BARBITURATE SCREEN URINE NEGATIVE (NEGATIVE); CANNABINOID SCREEN, URINE NEGATIVE (NEGATIVE); COCAINE SCREEN URINE NEGATIVE (NEGATIVE); METHADONE STAT NEGATIVE (NEGATIVE); OPIATE SCREEN URINE POSITIVE (NEGATIVE); OXYCODONE STAT POSITIVE (NEGATIVE); TRICYCLIC ANTIDEPRESSANTS SCRE NEGATIVE (NEGATIVE)
--- NOTE | 2023-02-16 14:51 | Diagnostic Imaging Report ---
INDICATION: Elevated liver enzymes COMPARISON: CT from 02/15/2023 PROCEDURE: Ultrasound abdomen complete. TECHNIQUE: Multiple real-time grayscale images were obtained of the abdomen in various projections. FINDINGS: The visible portions of the pancreas appear normal although most of the pancreas is obscured by bowel gas. The visible portions of the aorta and IVC are unremarkable. The liver demonstrates no focal lesions. The contour appears normal. Echogenicity appears normal. There is no biliary dilatation. The main portal vein is hepatopetal. The common bile duct measures 6 mm which is at the upper limit of normal. The gallbladder is distended measuring 8.2 cm in length. The gallbladder wall is mildly thickened. No stones are seen. The spleen is markedly large measuring 19 cm in length. No focal splenic lesions are identified. The right kidney measures 12.5 cm and the left measures 11.6 cm. There is no hydronephrosis. No significant free fluid is seen but there are small bilateral pleural effusions. IMPRESSION: 1. Mildly distended gallbladder with mild thickening of the gallbladder wall. This is nonspecific, and can be seen with multiple etiologies. HIDA scan could be considered to evaluate gallbladder function. 2. Marked splenomegaly. 3. The common bile duct is upper normal in size. There is no intrahepatic biliary dilatation. 4. Bilateral pleural effusions. Dictated by: Dictated on workstation # [id number]
[2023-02-16 15:59] VITALS: BP 128/66
[2023-02-16 19:39] VITALS: BP 122/66
[2023-02-16] MEDS ORDERED: ONDANSETRON 4 MG ORAL DISSOLVE TABLET SL PRN (20:30)
[2023-02-16] MEDS: LevETIRAcetam 500 MG TABLET PO SCH (20:41)
[2023-02-16] MEDS ORDERED: cefTRIAXone IV/IM 1,000 MG in NS (IVPB) 50 ML 50 ML IV SCH (21:00)
[2023-02-16 23:23] VITALS: BP 115/76
[2023-02-17 03:54] VITALS: BP 111/71
[2023-02-17 05:49] LABS: BASOPHILS % (AUTO) 0 % (0-10); MEAN PLATELET VOLUME 10.1 fL (9.0-12.2)
[2023-02-17 05:50] LABS: EOSINOPHILS % (AUTO) 1 % (0-10); HEMATOCRIT 26 % (40-54); HEMOGLOBIN 8.3 g/dL (13.3-17.7); LYMPHOCYTES # (AUTO) 0.5 10^3/uL (1.0-4.0); LYMPHOCYTES % (AUTO) 7 % (12-44); MEAN CORPUSCULAR HEMOGLOBIN 26 pg (25-34); MEAN CORPUSCULAR HGB CONC 32 g/dL (32-36); MEAN CORPUSCULAR VOLUME 80 fL (80-99); MONOCYTES # (AUTO) 0.5 10^3/uL (0.0-1.0); MONOCYTES % (AUTO) 9 % (0-12); NEUTROPHILS # (AUTO) 5.2 10^3/uL (1.8-7.8); NEUTROPHILS % (AUTO) 83 % (42-75); PLATELET COUNT 62 10^3/uL (130-400); WHITE BLOOD COUNT 6.2 10^3/uL (4.3-11.0)
[2023-02-17 06:16] LABS: ALBUMIN 2.4 GM/DL (3.2-4.5); BILIRUBIN,TOTAL 1.6 MG/DL (0.1-1.0); CREATININE SERUM 2.28 MG/DL (0.60-1.30); PHOSPHORUS 5.5 MG/DL (2.3-4.7); POTASSIUM 4.7 MMOL/L (3.6-5.0); TOTAL PROTEIN 6.3 GM/DL (6.4-8.2)
[2023-02-17] MEDS: HYDROmorphone INJECTION 2 MG/ML VIAL IV PRN (06:27)
[2023-02-17] MEDS: NS IV 1000 ML 1,000 ML IV SCH (06:28)
[2023-02-17] MEDS ORDERED: FLU QUADRIvalent (6 months+) 60 mcg/0.5 ml 2023-2024 (FLUARIX) IM ONE (07:00)
[2023-02-17 07:20] VITALS: BP 120/68
--- NOTE | 2023-02-17 07:28 | Progress Note - Surgery ---
NEPTALI,WILLARD 02/17/23 0728: Subjective Date Seen by a Provider: Feb 17, 2023 Time Seen by a Provider: 07:20 Subjective/Events-last exam Patient is A&O x 3. He had some hot flashes last night and threw up in his mouth once but had no further episodes. Still has 10/10 abdominal pain and is the most tender in the LLQ region, has some periumbilical tenderness. Denies any chest pain, fever or headache. Review of Systems General: Chills; No Night Sweats HEENT: No Head Aches, No Visual Changes Pulmonary: No Dyspnea, No Cough Cardiovascular: No: Chest Pain, Palpitations Gastrointestinal: Nausea, Vomiting, Abdominal Pain Genitourinary: No Dysuria, No Frequency, No Hematuria Musculoskeletal: No: neck pain, shoulder pain Neurological: No: Numbness, Confusion Focused Exam Lactate Level 02/16/23 00:42: Lactic Acid Level 0.54 Objective Exam Vital Signs Date Time Temp Pulse Resp B/P (MAP) Pulse Ox O2 Delivery O2 Flow Rate FiO2 02/17/23 07:20 36.5 72 16 120/68 (85) 98 Room Air 02/17/23 03:54 36.0 74 18 111/71 (84) 97 Room Air 02/16/23 23:23 36.0 80 18 115/76 (89) 96 Room Air 02/16/23 20:00 Room Air 02/16/23 19:39 37.7 81 18 122/66 (84) 96 Room Air 02/16/23 15:59 38.9 82 16 128/66 (86) 97 Room Air 02/16/23 14:10 Room Air 02/16/23 13:00 80 02/16/23 12:00 78 19 122/79 (93) 96 Room Air 02/16/23 11:04 37.2 02/16/23 11:00 70 17 103/77 (86) 90 Room Air 02/16/23 10:00 74 20 103/70 (81) 98 Room Air 02/16/23 09:00 76 21 131/88 (102) 90 Room Air 02/16/23 08:13 37.1 02/16/23 08:00 74 24 118/71 (87) 90 Room Air 02/16/23 08:00 96 Room Air I & O 02/17/23 07:00 Intake Total 3928 ml Output Total 675 ml Balance 3253 ml Capillary Refill : Less Than 3 Seconds General Appearance: No Apparent Distress, Chronically ill HEENT: PERRL/EOMI, TMs Normal Neck: Non Tender, Supple Respiratory: Lungs Clear, Normal Breath Sounds Cardiovascular: Regular Rate, Rhythm Gastrointestinal: soft; No guarding; tenderness (llq) Extremity: Normal Range of Motion Neurologic/Psychiatric: Alert, Oriented x3 Skin: Normal Color, Warm/Dry Results Lab Laboratory Tests 02/16/23 14:00: Urine Opiates Screen POSITIVEH, Urine Oxycodone Screen POSITIVEH, Urine Methadone Screen NEGATIVE, Urine Barbiturates Screen NEGATIVE, Ur Tricyclic Antidepressants Screen NEGATIVE, Urine Phencyclidine Screen NEGATIVE, Urine Amphetamines Screen NEGATIVE, Urine Methamphetamines Screen NEGATIVE, Urine Benzodiazepines Screen POSITIVEH, Urine Cocaine Screen NEGATIVE, Urine Cannabinoids Screen NEGATIVE 02/17/23 05:00: White Blood Count 6.2, Red Blood Count 3.25L, Hemoglobin 8.3L, Hematocrit 26L, Mean Corpuscular Volume 80, Mean Corpuscular Hemoglobin 26, Mean Corpuscular Hemoglobin Concent 32, Red Cell Distribution Width 15.8H, Platelet Count 62L, Mean Platelet Volume 10.1, Immature Granulocyte % (Auto) 0, Neutrophils (%) (Auto) 83H, Lymphocytes (%) (Auto) 7L, Monocytes (%) (Auto) 9, Eosinophils (%) (Auto) 1, Basophils (%) (Auto) 0, Neutrophils # (Auto) 5.2, Lymphocytes # (Auto) 0.5L, Monocytes # (Auto) 0.5, Eosinophils # (Auto) 0.0, Basophils # (Auto) 0.0, Immature Granulocyte # (Auto) 0.0, Percent Immature Platelet Fraction 3.9, Sodium Level 126L, Potassium Level 4.7, Chloride Level 102, Carbon Dioxide Level 17L, Anion Gap 7, Blood Urea Nitrogen 27H, Creatinine 2.28H, Estimat Glomerular Filtration Rate 32, BUN/Creatinine Ratio 12, Glucose Level 103, Calcium Level 8.0L, Corrected Calcium 9.3, Phosphorus Level 5.5H, Magnesium Level 2.0, Total Bilirubin 1.6H, Aspartate Amino Transf (AST/SGOT) 142H, Alanine Aminotransferase (ALT/SGPT) 111H, Alkaline Phosphatase 95, Total Protein 6.3L, Albumin 2.4L Microbiology 02/16/23 Blood Culture - Preliminary, Resulted 02/15/23 MRSA Screen - Final, Complete MRSA not isolated Assessment/Plan Assessment/Plan Assessment/Plan Assessment: hematochezia Enlarged spleen constipation hx of seizures and hepc infection plan: F/U US- mildly distended gallbladder. b/l pleural effusions clear liquids Clinical Quality Measures DVT/VTE Risk/Contraindication: Contraindications-Pharm: Other *list below* Other: TIARA JAEGER DO 02/18/23 1106: Subjective Subjective/Events-last exam llq abdominal pain still present. More like his chronic pain. No more blood in stools. No right upper quadrant abdominal pain. Denies n/v fever sweats chills shortness of breath or chest pain. Objective Exam General Appearance: No Apparent Distress, Chronically ill HEENT: PERRL/EOMI, Normal ENT Inspection Neck: Non Tender, Supple Respiratory: Chest Non Tender, No Accessory Muscle Use, No Respiratory Distress Cardiovascular: Regular Rate, Rhythm, No JVD Gastrointestinal: soft; No guarding, No rebound; tenderness (llq) Extremity: Normal Range of Motion, Non Tender Neurologic/Psychiatric: Alert, Oriented x3 Skin: Normal Color, Warm/Dry Other comments rectal exam no blood, stool in vault Assessment/Plan Assessment/Plan Assessment/Plan hematochezia Enlarged spleen constipation hx of seizures and hepc infection llq abdomina pain plan: F/U US- mildly distended gallbladder. b/l pleural effusions clear liquids no ruq abdominal pain do not feel gallbladder is causing his symptoms. no bleeding from rectum at this time and had recent colonoscopy, if continues, would repeat Supervisory-Addendum Brief Verification & Attestation Participated in pt care: history, MDM, physical Personally performed: exam, history, MDM, supervision of care Care discussed with: Medical Student Procedures: n/a Results interpretation: Verified all documentation Verification and Attestation of Medical Student E/M Service A medical student performed and documented this service in my presence. I reviewed and verified all information documented by the medical student and made modifications to such information, when appropriate. I personally performed the physical exam and medical decision making. Tiara Seth, Feb 17, 2023,11:06 AMAYA Feb 17, 2023 07:28 TIARA SETH DO Feb 18, 2023 11:06
[2023-02-17] MEDS ORDERED: FAMOTIDINE 20 MG TABLET PO SCH (09:00)
[2023-02-17] MEDS ORDERED: OLANZapine 5 MG ODT TABLET PO SCH (09:00)
[2023-02-17] MEDS: LevETIRAcetam 500 MG TABLET PO SCH (09:16)
[2023-02-17] MEDS: PANTOPRAZOLE INJECTION 40 MG VIAL IV SCH (09:16)
[2023-02-17] MEDS: DOCUSATE SODIUM 100 MG CAPSULE PO SCH (09:16)
[2023-02-17] MEDS ORDERED: ONDA4TAB11 SL (10:09)
[2023-02-17] MEDS ORDERED: PANT40TA2 PO (10:09)
[2023-02-17] MEDS ORDERED: OXC5T PO (10:09)
--- NOTE | 2023-02-17 10:10 | Discharge Summary ---
Discharge Summary Hospital Course Was the Problem List Reviewed?: Yes Problems/Dx: (1) GI bleed Status: Acute Qualifiers: Qualified Codes: K62.5 - Hemorrhage of anus and rectum (2) Abdominal pain Status: Acute (3) NIURKA (acute kidney injury) Status: Acute (4) Seizure disorder Status: Chronic (5) Hepatitis C Status: Chronic Hospital Course Date of Admission: Feb 15, 2023 at 22:36 Admission Diagnosis : Family Physician/Provider: Kaycee Negron Date of Discharge: 02/17/23 Discharge Diagnosis: [ ] Hospital Course: Uneventful course after he presented with BRBPR and monitored closely due to HCV and cirrhosis. No seizures occurred during course. Surgery consulted and hgb was stable and was advanced on his diet and was able to regain bowel function and he will need endoscopy as outpatient. Labs and Pending Lab Test: Laboratory Tests 02/16/23 14:00: Urine Opiates Screen POSITIVEH, Urine Oxycodone Screen POSITIVEH, Urine Methadone Screen NEGATIVE, Urine Barbiturates Screen NEGATIVE, Ur Tricyclic Antidepressants Screen NEGATIVE, Urine Phencyclidine Screen NEGATIVE, Urine Amphetamines Screen NEGATIVE, Urine Methamphetamines Screen NEGATIVE, Urine Benzodiazepines Screen POSITIVEH, Urine Cocaine Screen NEGATIVE, Urine Cannabi noids Screen NEGATIVE 02/17/23 05:00: White Blood Count 6.2, Red Blood Count 3.25L, Hemoglobin 8.3L, Hematocrit 26L, Mean Corpuscular Volume 80, Mean Corpuscular Hemoglobin 26, Mean Corpuscular Hemoglobin Concent 32, Red Cell Distribution Width 15.8H, Platelet Count 62L, Mean Platelet Volume 10.1, Immature Granulocyte % (Auto) 0, Neutrophils (%) (Auto) 83H, Lymphocytes (%) (Auto) 7L, Monocytes (%) (Auto) 9, Eosinophils (%) (Auto) 1, Basophils (%) (Auto) 0, Neutrophils # (Auto) 5.2, Lymphocytes # (Auto) 0.5L, Monocytes # (Auto) 0.5, Eosinophils # (Auto) 0.0, Basophils # (Auto) 0.0, Immature Granulocyte # (Auto) 0.0, Percent Immature Platelet Fraction 3.9, Sodium Level 126L, Potassium Level 4.7, Chloride Level 102, Carbon Dioxide Level 17L, Anion Gap 7, Blood Urea Nitrogen 27H, Creatinine 2.28H, Estimat Glomerular Filtration Rate 32, BUN/Creatinine Ratio 12, Glucose Level 103, Calcium Level 8.0L, Corrected Calcium 9.3, Phosphorus Level 5.5H, Magnesium Level 2.0, Total Bilirubin 1.6H, Aspartate Amino Transf (AST/SGOT) 142H, Alanine Aminotransferase (ALT/SGPT) 111H, Alkaline Phosphatase 95, Total Protein 6.3L, Albumin 2.4L Microbiology 02/16/23 Blood Culture - Preliminary, Resulted 02/15/23 MRSA Screen - Final, Complete MRSA not isolated Home Meds Active Protonix (Pantoprazole Sodium) 40 Mg Tablet.dr 40 Mg PO DAILY Oxyir Tablet (Oxycodone HCl) 5 Mg Tab 5 Mg PO Q4HR PRN Ondansetron Odt (Ondansetron) 4 Mg Tab.rapdis 4 Mg SL Q8H PRN Reported Sofosbuvir-Velpatasvir 400-100 (Sofosbuvir/Velpatasvir) 400 Mg-100 Mg Tablet 1 Each PO DAILY Aspirin 81 Mg Tab.chew 81 Mg PO DAILY [Legatrin Pm] PO Acid Portrait Artist (FAMOTIDINE) (Famotidine) 20 Mg Tablet 20 Mg PO BID Olanzapine 5 Mg Tablet 5 Mg PO DAILY Meloxicam (Meloxicam, Submicronized) 10 Mg Capsule 15 Mg PO DAILY Levetiracetam 500 Mg Tablet 500 Mg PO BID Assessment/Pt Instructions PCP 1 week Discharge Planning: <30 minutes discharge planning Discharge Instructions Discharge Diet: No Restrictions Discharge Physical Examination Vital Signs Vital Signs Date Time Temp Pulse Resp B/P (MAP) Pulse Ox O2 Delivery O2 Flow Rate FiO2 02/17/23 08:44 Room Air 02/17/23 07:20 36.5 72 16 120/68 (85) 98 02/15/23 23:57 21 General Appearance: No Apparent Distress, WD/WN, Chronically ill Respiratory: Lungs Clear Neurologic/Psychiatric: Alert, Oriented x3 Allergies: Coded Allergies: No Known Allergies (Unverified Allergy, Unknown, 12/24/22) Discharge Summary Date of Admission Feb 15, 2023 at 22:36 Date of Discharge Discharge Date: Feb 17, 2023 Admission Diagnosis Hematochezia Hepatitis C Seizure disorder Plan: We will move to fourth floor Supportive care Discharge Diagnosis (1) GI bleed Status: Acute Assessment & Plan: Patient presented for GI bleed. Rectal exam in the ED was notable for an internal hemorrhoid which likely explains patient's GI bleed. Hemoglobin has been stable since yesterday from 9.1-8.9 this AM. Plan: Consulted general surgery for further evaluation Trend daily CBCs Qualifiers: Qualified Codes: K62.5 - Hemorrhage of anus and rectum (2) Abdominal pain Status: Acute Assessment & Plan: Patient noting left lower quadrant abdominal pain today. Plan: We will follow-up abdominal ultrasound Clear liquid diet for now Continue pain management (3) NIURKA (acute kidney injury) Status: Acute Assessment & Plan: Patient noted to have acute kidney injury with increase of creatinine to 2.25 with minimal improvement this morning. It appears back in December, patient's creatinine was normal. There is concern for possible hepatorenal syndrome with this change. CT abdomen/pelvis was negative for any renal findings. Plan: Monitor daily CMP (4) Seizure disorder Status: Chronic Assessment & Plan: Continue ACID PATROLLER medications (5) Hepatitis C Status: Chronic Assessment & Plan: Patient on treatment for hepatitis C. Holding for now in the acute setting. Plan: Follow-up hep C viral load and labs Clinical Quality Measures DVT/VTE Risk/Contraindication: Contraindications-Pharm: Other *list below* Other: FORTINO HARDY DO Feb 17, 2023 10:10
[2023-02-17 12:05] VITALS: BP 137/82
== END 2023-02-17 13:30 | disposition home or self-care (01) ==
LOC: EDUNIT# 19:56 → ER FS 19:57 → ICU 22:36 → 4TH 02-16 14:10
PROVIDERS: ADMIT Internal Medicine; ATTEND Internal Medicine
DX: K92.2 Gastrointestinal hemorrhage, unspecified (principal); K92.1 Melena; R10.9 Unspecified abdominal pain; B17.9 Acute viral hepatitis, unspecified; G40.909 Epilepsy, unspecified, not intractable, without status epilepticus; B19.20 Unspecified viral hepatitis C without hepatic coma; K74.60 Unspecified cirrhosis of liver; R16.1 Splenomegaly, not elsewhere classified; K59.00 Constipation, unspecified; D69.6 Thrombocytopenia, unspecified; E87.1 Hypo-osmolality and hyponatremia; F17.220 Nicotine dependence, chewing tobacco, uncomplicated
CPT/HCPCS: 36415; 74177; 76700; 80053 ×3; 80306; 81000; 83605; 83690; 83735 ×3; 84100 ×2; 85007; 85025 ×2; 85027; 85610; 85730; 86141; 87040; 87081; 87088; 87522; 93005; 96374; 96375; 99284; G0480; 80320; 96361; 96366; 96376; G0378; Q9967

== ENCOUNTER 2023-02-22 10:10 | Emergency (ER) | payer MEDICARE ==
[~2023-02-22 10:10] MED LIST changes: +ASPI-999 PO; +FAMO-356 PO; +LEGATRIN PM PO; +MELO10CA3 PO; +OLN5T PO; +ONDA4TAB11 SL; +OXC5T PO; +PANT40TA2 PO; +SOFO1TAB3 PO
[2023-02-22] MEDS ORDERED: ONDANSETRON INJECTION 4 MG/2 ML (SDV) IVP STA (10:27)
[2023-02-22] MEDS ORDERED: fentaNYL INJECTION 100 MCG/2 ML VIAL IVP STA ×2 (10:27→12:01)
--- NOTE | 2023-02-22 10:29 | ED Abdominal Pain ---
General Chief Complaint: Abdominal/GI Problems Stated Complaint: SWOLLEN TESTICLES Source of Information: Patient, Family (Mother) Exam Limitations: Other (Patient has history of a TBI and his mother is developing dementia.) History of Present Illness Date Seen by Provider: Feb 22, 2023 Time Seen by Provider: 10:12 Initial Comments 62-year-old male presenting with his mother to the emergency department. He has a history of hepatitis C and seizure disorder, TBI, Schizoaffective disorder. He recently had bright red blood per rectum and was admitted for few days at [facility]. He has had longstanding abdominal pain that he feels is related to hernia. He feels like he needs surgery for the hernia. He states that he has had increased pain in the last 24 to 48 hours as well as having swelling to his scrotum. He denies having any fever but states he was having chills. He denies having any more blood in his stools since last week. He feels that his scrotum is swollen in the last 1-2 days. He denies pain with urination. He is groaning and crying out and having a hard time sitting still. Timing/Duration: 1-2 Days (getting worse in last 1-2 days) Severity/Quality: Severe, Cramping, Stabbing Location: Periumbilical Activities at Onset: None Modifying Factors: Worsens With Movement, Worsens With Palpation Associated Symptoms: No Back Pain, No Chest Pain, No Diaphoresis, No Fatigue, No Headache, No Heartburn; Nausea/Vomiting; No Rash, No Shortness of Air; Swelling/Mass in Abdomen (feels that his abdomen is swollen and concerned that he needs surgery for abdominal hernia); No Syncope, No Weakness Allergies and Home Medications Allergies Coded Allergies: No Known Allergies (Unverified Allergy, Unknown, 12/24/22) Patient Home Medication List Home Medication List Reviewed: Yes Famotidine (Acid Rest Room Attendant (FAMOTIDINE)) 20 Mg Tablet, 20 MG PO BID, (Reported) Entered as Reported by: KOFI COATS on 02/15/23 9993 Levetiracetam (Levetiracetam) 500 Mg Tablet, 500 MG PO BID, (Reported) Entered as Reported by: KRISTIAN CLAUDIO on 12/24/22 1006 Olanzapine (Olanzapine) 5 Mg Tablet, 5 MG PO DAILY, (Reported) Entered as Reported by: KOFI COATS on 02/15/232348 Ondansetron (Ondansetron Odt) 4 Mg Tab.rapdis, 4 MG SL Q8H PRN for NAUSEA-1ST LINE Prescribed by: FORTINO PENA on 02/17/231008 Oxycodone Hcl (Oxyir Tablet) 5 Mg Tab, 5 MG PO Q4HR PRN for PAIN-SEE DOSE INSTRUCTIONS Prescribed by: FORTINO PENA on 02/17/231008 Pantoprazole Sodium (Protonix) 40 Mg Tablet.dr, 40 MG PO DAILY Prescribed by: FORTINO PENA on 02/17/231008 Sofosbuvir/Velpatasvir (Sofosbuvir-Velpatasvir 400-100) 400 Mg-100 Mg Tablet, 1 EACH PO DAILY, (Reported) Entered as Reported by: KOFI COATS on 02/15/232348 [Legatrin Pm] , PO, (Reported) Entered as Reported by: KOFI COATS on 02/15/232348 Discontinued Medications Aspirin (Aspirin) 81 Mg Tab.chew, 81 MG PO DAILY, (Reported) Entered as Reported by: KOFI COATS on 02/15/232348 Azithromycin (Azithromycin) 500 Mg Tablet, 500 MG PO DAILY Prescribed by: ALLISON RIGGINS on 01/10/231717 Guaifenesin (Mucinex) 1,200 Mg Tab.er.12h, 1,200 MG PO BID Prescribed by: ALLISON RIGGINS on 01/10/231717 Hydrocodone/Acetaminophen (Hydrocodone-Acetamin 5-325 mg) 5 Mg-325 Mg Tablet, 1 TAB PO Q4H PRN for PAIN SEVERE Prescribed by: ALLISON RIGGINS on 01/10/231717 Meloxicam, Submicronized (Meloxicam) 10 Mg Capsule, 15 MG PO DAILY, (Reported) Entered as Reported by: KOFI COATS on 02/15/232340 Prochlorperazine Maleate (Compazine) 5 Mg Tablet, 5 MG PO Q6H PRN for NAUSEA/VOMITING Prescribed by: ALLISON RIGGINS on 01/10/231717 Review of Systems Review of Systems Constitutional: chills; No fever EENTM: No Symptoms Reported Respiratory: No Symptoms Reported Cardiovascular: No Symptoms Reported Gastrointestinal: See HPI Genitourinary: See HPI Musculoskeletal: no symptoms reported Skin: no symptoms reported Psychiatric/Neurological: Anxiety, Emotional Problems Past Kfanecn-Gjsorl-Xcxijb Hx Patient Social History Tobacco Use?: Yes Smokeless Tobacco Frequency: Current Everyday User Use of E-Cig and/or Vaping dev: No Substance use?: No Alcohol Use?: No Pt feels they are or have been: No Immunizations Up To Date First/Initial COVID19 Vaccinat: x3 Second COVID19 Vaccination Otoniel: x3 Third COVID19 Vaccination Date: x3 Past Medical History Surgery/Hospitalization HX: HEP C, PACEMAKER, Schizoaffective disorder, TBI, Hypertension Surgeries: Yes (ANKLE,SHOULDER) Orthopedic Respiratory: No Cardiac: Yes (PACEMAKER) Hypertension Neurological: Yes Concussion, Seizure Disorder Genitourinary: No Gastrointestinal: Yes (HEPATITIS A AND C) Hepatitis Musculoskeletal: No Chronic Back Pain Endocrine: No Cancer: No Psychosocial: Yes (SCHIZO-AFFECTIVE DISORDER) Blood Disorders: No Family Medical History No Pertinent Family Hx Physical Exam Vital Signs Vital Signs - First Documented 02/22/23 10:15 Temp 36.6 Pulse 83 Resp 18 B/P (MAP) 123/74 (90) Pulse Ox 100 O2 Delivery Room Air Capillary Refill : Height/Weight/BMI Height: '" Weight: lbs. oz. kg; 31.80 BMI Method: General Appearance: WD/WN, moderate distress (crying out and moaning at times, having a hard time sitting still due to abdominal pain) HEENT: PERRL/EOMI Neck: non-tender, full range of motion, supple Respiratory: chest non-tender, lungs clear, normal breath sounds Cardiovascular: normal peripheral pulses, regular rate, rhythm Gastrointestinal: soft, no pulsatile mass, abnormal bowel sounds (hypoactive), guarding; No rebound; tenderness (diffuse) Rectal: deferred Extremities: normal range of motion, non-tender, normal capillary refill Neurologic/Psychiatric: alert, oriented x 3 Skin: normal color, warm/dry; No jaundice Images 1 - complaint of diffuse pain but feels it is worse in periumbilical area, especially with palpation and movement. Focused Exam Lactate Level 02/22/23 10:35: Lactic Acid Level 1.67 Lactic Acid Level Laboratory Tests Test 02/22/23 10:35 Lactic Acid Level 1.67 MMOL/L (0.50-2.00) Progress/Results/Core Measures Results/Orders Lab Results Laboratory Tests Test 02/22/23 10:20 02/22/23 10:35 Range/Units White Blood Count 7.5 4.3-11.0 10^3/uL Red Blood Count 3.37 L 4.30-5.52 10^6/uL Hemoglobin 8.7 L 13.3-17.7 g/dL Hematocrit 28 L 40-54 % Mean Corpuscular Volume 84 80-99 fL Mean Corpuscular Hemoglobin 26 25-34 pg Mean Corpuscular Hemoglobin Concent 31 L 32-36 g/dL Red Cell Distribution Width 16.9 H 10.0-14.5 % Platelet Count 81 L 130-400 10^3/uL Mean Platelet Volume 10.9 9.0-12.2 fL Immature Granulocyte % (Auto) 0 % Neutrophils (%) (Auto) 86 H 42-75 % Lymphocytes (%) (Auto) 5 L 12-44 % Monocytes (%) (Auto) 7 0-12 % Eosinophils (%) (Auto) 1 0-10 % Basophils (%) (Auto) 0 0-10 % Neutrophils # (Auto) 6.5 1.8-7.8 10^3/uL Lymphocytes # (Auto) 0.4 L 1.0-4.0 10^3/uL Monocytes # (Auto) 0.5 0.0-1.0 10^3/uL Eosinophils # (Auto) 0.1 0.0-0.3 10^3/uL Basophils # (Auto) 0.0 0.0-0.1 10^3/uL Immature Granulocyte # (Auto) 0.0 0.0-0.1 10^3/uL Prothrombin Time 14.9 H 12.2-14.7 SEC INR Comment 1.1 0.8-1.4 Activated Partial Thromboplast Time 33 24-35 SEC Sodium Level 128 L 135-145 MMOL/L Potassium Level 4.6 3.6-5.0 MMOL/L Chloride Level 100 98-107 MMOL/L Carbon Dioxide Level 16 L 21-32 MMOL/L Anion Gap 12 5-14 MMOL/L Blood Urea Nitrogen 24 H 7-18 MG/DL Creatinine 3.09 #H 0.60-1.30 MG/DL Estimat Glomerular Filtration Rate 22 BUN/Creatinine Ratio 8 Glucose Level 105 70-105 MG/DL Lactic Acid Level 1.67 0.50-2.00 MMOL/L Calcium Level 8.0 L 8.5-10.1 MG/DL Corrected Calcium 9.1 8.5-10.1 MG/DL Total Bilirubin 0.9 0.1-1.0 MG/DL Aspartate Amino Transf (AST/SGOT) 48 H 5-34 U/L Alanine Aminotransferase (ALT/SGPT) 38 0-55 U/L Alkaline Phosphatase 99 40-136 U/L Total Protein 7.4 6.4-8.2 GM/DL Albumin 2.6 L 3.2-4.5 GM/DL Lipase 28 8-78 U/L My Orders Orders - ALLISON RIGGINS MD Comprehensive Metabolic Panel (02/22/23 10:25) Lipase (02/22/23 10:25) Ua Culture If Indicated (02/22/23 10:25) Ed Iv/Invasive Line Start (02/22/23 10:25) Cbc And Automated Diff (02/22/23 10:25) Protime With Inr (02/22/23 10:25) Partial Thromboplastin Time (02/22/23 10:25) Fentanyl Injection (Fentanyl Injection (02/22/23 10:27) Ondansetron Injection (Ondansetron Inj (02/22/23 10:27) Lactic Acid Analyzer (02/22/23 10:29) Manual Differential (02/22/23 10:35) Ammonia (02/22/23 10:45) Ct Abdomen/Pelvis Wo (02/22/23 10:59) Ns Iv 500 Ml (Ns Iv 500 Ml) (02/22/23 11:21) Fentanyl Injection (Fentanyl Injection (02/22/23 12:01) Morphine Injection (Morphine Injection (02/22/23 12:13) Vital Signs/I&O 02/22/23 02/22/23 10:15 13:08 Temp 36.6 36.6 Pulse 83 86 Resp 18 18 B/P (MAP) 123/74 (90) 126/82 Pulse Ox 100 100 O2 Delivery Room Air Room Air Progress Progress Note #1: Progress Note Differential diagnosis Acute on chronic liver failure, Acute renal failure, sepsis, bowel obstruction, electrolyte imbalance. Establish peripheral IV access and send labs for complete blood count, comp rehensive metabolic profile, lactic acid, ammonia, pro time, PTT, urinalysis. Administer fentanyl 50 mcg IV for pain, Zofran 4 mg IV for nausea and vomiting. Since the urine is exhibiting signs of some edema will defer IV fluids for now. Obtain CT scan of the abdomen and pelvis hopefully with IV contrast preventing his creatinine and kidney function is adequate. This week he had elevated creati nine over 2. Progress Note #2: Time: 10:54 Progress Note Acute kidney injury with creatinine up to 3.09. When he was discharged on [facility] his creatinine was 2.28. He has stable anemia with hemoglobin of 8.7. He was 8.3 when he was discharged from [facility] on [address]. He had a negative lactic acid of 1.67. His liver enzymes had improved where he now has a total bilirubin of 0.9 and AST of 48. Lipase was negative at 28. His pro time was 14.9 with an INR of 1.1 and PTT of 32. His sodium continues to run low at 128 which is stable from last week. We will change his CT scan of his abdomen and pelvis to a noncontrast study since he has acute kidney injury worsening from 5 days ago. Progress Note #3: Time: 11:[address] scan of the abdomen and pelvis without IV contrast did not show an worsening of bilateral pleural effusions and increasing the amount of ascites in the abdo men pelvis. He had signs of nodules in the liver and portal hypertension. Patient has appointment scheduled to see a specialist in [place] within the next few weeks. Mom was agreeable as well as patient to be transferred to [facility] for further evaluation and treatment. Call placed to the [facility] access center and discussed with VICENTA Rebolledo. I reviewed the patient's presentation and history as well as pertinent labs. She took the information and stated that the patient qualified for auto acceptance to [facility]. I did wait on hold for a few minutes to try and speak with the ED provider if needed but they were busy in her room so Kesha is to call me back once patient is cleared to come to the emergency department at [facility]. Patient was complaining of continued pain despite the fentanyl. Will try repeating the fentanyl but he wanted also try something different so in addition to an another 50 mcg of fentanyl morphine 5 mg IV was ordered for pain control. 1233 I called the [facility] access center back again and spoke with VICENTA Bassett. She advised that per Kesha's notes the ED doctor was still busy and she was still trying to reach them about the transfer. A facesheet was faxed and they requested the images be clouded. Diagnostic Imaging Diagonstic Imaging: CT Plain Films/CT/US/NM/MRI: abdomen, pelvis Comments NAME: JEFFERSON [facility]ADD[facility] REC#: [id number] PT STATUS: REG ER : 1960 PHYSICIAN: ALLISON RIGGINS MD ADMIT DATE: 02/22/23/ER FS Draft Date of Exam:02/22/23 CT ABDOMEN/PELVIS WO CT ABDOMEN/PELVIS WO TECHNIQUE: Unenhanced CT imaging of the abdomen and pelvis was performed. 2-D reformats are created and submitted for interpretation. Automatic exposure controls were utilized to optimize patient dose. INDICATION: Diffuse abdominal pain. Hepatitis C with nausea and vomiting COMPARISON: 02/15/2023 FINDINGS: Lower chest: Moderate right and small left pleural effusions. Peritoneum: No free intraperitoneal air. A small amount of ascites is increased since prior exam. Liver and biliary system: Mild heterogeneity and nodularity of the liver may relate to cirrhosis. No focal hepatic lesion. Gallbladder remains contracted with surrounding edema. Spleen and Pancreas: Unchanged splenomegaly with the spleen measuring 15 cm Unenhanced pancreas is grossly normal. Adrenals: Normal. tract: No renal or ureteral calculi. No obstructive uropathy. Urinary bladder is partially filled without wall thickening. The scrotum is not included in the [id number]. GI tract: Stomach is decompressed. No bowel obstruction. No pericolonic inflammatory changes. Descending and sigmoid colon diverticulosis without diverticulitis. Vasculature and Lymph nodes: Normal caliber aorta. No abdominal or pelvic lymphadenopathy. Musculoskeletal: No concerning osseous lesion. IMPRESSION: 1. Small volume of ascites has increased since prior examination. 2. Mild nodularity liver surface with splenomegaly suggests cirrhosis and portal hypertension. 3. Bilateral pleural effusions have increased in size. Dictated on workstation # [id number] Dict: 02/22/23 1118 Trans: 02/22/23 1125 [facility] [id number] Interpreted by: ALEX JEROME MD Electronically signed by: Reviewed: Reviewed by Me Departure Impression Primary Impression: NIURKA (acute kidney injury) Additional Impressions: Anemia Qualified Codes: D64.9 - Anemia, unspecified Hepatitis C Qualified Codes: B18.2 - Chronic viral hepatitis C Abdominal pain, periumbilical Cirrhosis of liver Qualified Codes: K74.60 - Unspecified cirrhosis of liver; R18.8 - Other ascites Ascites Qualified Codes: R18.8 - Other ascites Pleural effusion, bilateral Disposition: 02 XFER SHT-TRM HOSP Condition: Stable Transfer Transfer Reason: Exceeds level of care (Needs nephrology as well as possible GI or hepatology.) Time Spoke to Accepting Phy: 12:45 Transfer Progress Notes 1145 Call placed to the [facility] access center and discussed with VICENTA Rebolledo. I reviewed the patient's presentation and history as well as pertinent labs. She took the information and stated that the patient qualified for auto acceptance to [facility]. I did wait on hold for a few minutes to try and speak with the ED provider if needed but they were busy in her room so Kesha is to call me back once patient is cleared to come to the emergency department at [facility]. 1233 I called the [facility] access center back again and spoke with VICENTA Bassett. She advised that per Kesha's notes the ED doctor was still busy and she was still trying to reach them about the transfer. A facesheet was faxed and they requested the images be clouded. 1245 [facility] access center called back and stated that Dr. Grover was the accepting provider at [facility] and they gave a number for nursing report. He will be going to the ED initially before being admitted to a room. Transfer Facility: [facility] Method of Transfer: EMS Departure-Patient Inst. Referrals: SEUN MATTHEWS (PCP) Primary Care Physician NO,LOCAL PHYSICIAN (Family) Primary Care Physician ALLISON RIGGINS MD Feb 22, 2023 10:29
[2023-02-22 10:37] LABS: BASOPHILS % (AUTO) 0 % (0-10); EOSINOPHILS # (AUTO) 0.1 10^3/uL (0.0-0.3); EOSINOPHILS % (AUTO) 1 % (0-10); HEMATOCRIT 28 % (40-54); HEMOGLOBIN 8.7 g/dL (13.3-17.7); LYMPHOCYTES # (AUTO) 0.4 10^3/uL (1.0-4.0); LYMPHOCYTES % (AUTO) 5 % (12-44); MEAN CORPUSCULAR HEMOGLOBIN 26 pg (25-34); MEAN CORPUSCULAR HGB CONC 31 g/dL (32-36); MEAN CORPUSCULAR VOLUME 84 fL (80-99); MEAN PLATELET VOLUME 10.9 fL (9.0-12.2); MONOCYTES # (AUTO) 0.5 10^3/uL (0.0-1.0); MONOCYTES % (AUTO) 7 % (0-12); NEUTROPHILS # (AUTO) 6.5 10^3/uL (1.8-7.8); NEUTROPHILS % (AUTO) 86 % (42-75); PLATELET COUNT 81 10^3/uL (130-400); WHITE BLOOD COUNT 7.5 10^3/uL (4.3-11.0)
[2023-02-22 10:55] LABS: INR 1.1 (0.8-1.4); POTASSIUM 4.6 MMOL/L (3.6-5.0); PROTHROMBIN TIME PATIENT 14.9 SEC (12.2-14.7)
[2023-02-22 10:56] LABS: BILIRUBIN,TOTAL 0.9 MG/DL (0.1-1.0); TOTAL PROTEIN 7.4 GM/DL (6.4-8.2)
[2023-02-22 10:57] LABS: CREATININE SERUM 3.09 MG/DL (0.60-1.30)
[2023-02-22 10:58] LABS: ALBUMIN 2.6 GM/DL (3.2-4.5)
[2023-02-22] MEDS ORDERED: NS IV 500 ML 500 ML IV STA (11:21)
--- NOTE | 2023-02-22 11:26 | Diagnostic Imaging Report ---
CT ABDOMEN/PELVIS WO TECHNIQUE: Unenhanced CT imaging of the abdomen and pelvis was performed. 2-D reformats are created and submitted for interpretation. Automatic exposure controls were utilized to optimize patient dose. INDICATION: Diffuse abdominal pain. Hepatitis C with nausea and vomiting COMPARISON: 02/15/2023 FINDINGS: Lower chest: Moderate right and small left pleural effusions. Peritoneum: No free intraperitoneal air. A small amount of ascites is increased since prior exam. Liver and biliary system: Mild heterogeneity and nodularity of the liver may relate to cirrhosis. No focal hepatic lesion. Gallbladder remains contracted with surrounding edema. Spleen and Pancreas: Unchanged splenomegaly with the spleen measuring 15 cm Unenhanced pancreas is grossly normal. Adrenals: Normal. tract: No renal or ureteral calculi. No obstructive uropathy. Urinary bladder is partially filled without wall thickening. The scrotum is not included in the [id number]. GI tract: Stomach is decompressed. No bowel obstruction. No pericolonic inflammatory changes. Descending and sigmoid colon diverticulosis without diverticulitis. Vasculature and Lymph nodes: Normal caliber aorta. No abdominal or pelvic lymphadenopathy. Musculoskeletal: No concerning osseous lesion. IMPRESSION: 1. Small volume of ascites has increased since prior examination. 2. Mild nodularity liver surface with splenomegaly suggests cirrhosis and portal hypertension. 3. Bilateral pleural effusions have increased in size. Dictated by: Dictated on workstation # [id number]
[2023-02-22] MEDS ORDERED: morphine INJ 10 MG/ML 1ML (SYR OR VIAL) IVP STA (12:13)
[2023-02-22 13:08] VITALS: BP 126/82
[2023-02-22 14:10] LABS: LYMPHOCYTES % (MANUAL) 5 %; MONOCYTES % (MANUAL) 3 %; NEUTROPHILS % (MANUAL) 92 %
== END 2023-02-22 13:10 | disposition short-term general hospital (02) ==
LOC: EDUNIT# 10:10 → ER FS 10:11
DX: K74.60 Unspecified cirrhosis of liver (principal); R18.8 Other ascites; B19.20 Unspecified viral hepatitis C without hepatic coma; D64.9 Anemia, unspecified; N17.9 Acute kidney failure, unspecified; J90 Pleural effusion, not elsewhere classified; R11.2 Nausea with vomiting, unspecified; F17.200 Nicotine dependence, unspecified, uncomplicated
CPT/HCPCS: 36415; 74176; 80053; 82140; 83605; 83690; 85007; 85027; 85610; 85730; 96361; 96374; 96375; 96376